=== PATIENT | female | born 1960 | race Caucasian/White ===

== ENCOUNTER 2016-03-14 21:52 | Emergency (ER) | payer OTHER ==
--- NOTE | 2016-03-14 22:03 | ED SYNCOPE COMPLAINT ---
History of Present Illness General Chief Complaint: Syncope and Near-Syncope Stated Complaint: PT HAD A SYNCOPE Source: patient Exam Limitations: no limitations Vital Signs & Intake/Output Vital Signs & Intake/Output Vital Signs Date Time Temp Pulse Resp B/P Pulse O2 O2 Flow FiO2 Ox Delivery Rate 03/14 2253 72 152/76 100 Room Air 03/14 2215 98.0 64 16 136/62 100 Room Air Triage Nurses Notes Reviewed? yes Timing: single episode today Precipitating Factors: lightheadedness Loss of Consciousness: no loss of consciousness HPI: 55-year-old female had a near syncopal episode while she was here in the emergency room with her daughter who was getting an abscess drainage. Patient has a history of feeling lightheaded and woozy when she sees blood. Patient was in the room during the procedure and started to feel lightheaded dizzy and nauseous. Patient never lost consciousness completely. Patient became diaphoretic and felt like she was going to pass out. No chest pain. No shortness of breath. No heart palpitations. Denies any other associated symptoms. (FAY STAPLES) Past History Travel History Traveled to [place] past 21 day No Medical History Any Pertinent Medical History? none Surgical History Surgical History: non-contributory Family History Hx Contributory? No (FAY STAPLES) Review of Systems Review of Systems Constitutional: Reports: see HPI. EENTM: Reports: no symptoms. Respiratory: Reports: no symptoms. Cardiovascular: Reports: no symptoms. GI: Reports: no symptoms. Genitourinary: Reports: no symptoms. Musculoskeletal: Reports: no symptoms. Skin: Reports: no symptoms. Neurological/Psychological: Reports: no symptoms. All Other Systems: Reviewed and Negative (FAY STAPLES) Physical Exam Physical Exam General Appearance: well developed/nourished, no apparent distress, alert Head: atraumatic, normal appearance Eyes: Bilateral: normal appearance, PERRL, EOMI. Ears, Nose, Throat: normal pharynx, normal ENT inspection Neck: normal inspection, supple, full range of motion Respiratory: normal breath sounds, no respiratory distress Cardiovascular: regular rate/rhythm Back: normal inspection, normal range of motion Extremities: normal inspection Psychiatric: awake, alert, oriented x 3 Cranial Nerves: normal hearing, normal speech, PERRL Coordination/Gait: normal finger to nose Motor/Sensory: no motor/sensory deficits Skin: intact, diaphoresis Core Measures ACS in differential dx? No CVA/TIA Diagnosis: No Severe Sepsis Present: No Septic Shock Present: No (FAY STAPLES) Progress Differential Diagnosis: AMI, aortic dissection, aortic valve, drug induced syncope, hyperventilation, orthostatic syncope, other valvular disease, pacemaker malfunction, pericardial tamponade, pulmonary embolus, seizure, sick sinus syndrome, subarachnoid hem., TIA/CVA, vasodepressor syncope, ventricular tach/fib Plan of Care: Orders Procedure Date/time Status EKG 03/14 2201 Active Initial ED EKG: normal intervals, normal p-waves, normal QRS complex, normal sinus rhythm, rate (64), nonspecific ST T wave chg Comments: 03/14/2016 10:36:02 PM Patient clinically looks well. Nontoxic-appearing. In no apparent distress. Resting comfortably in room. Patient's symptoms have resolved at this point. Patient had a vasovagal episode. EKG within normal limits. I do not feel blood work or further workup is necessary at this time. She was recommended to follow -up with her primary care doctor for reevaluation on Thursday. Return if any other concerns. (FAY STAPLES) Departure Departure Disposition: HOME OR SELF CARE Condition: Stable Clinical Impression Primary Impression: Vasovagal near syncope Additional Instructions: Follow-up with your primary care doctor. Return if any concerns worsening symptoms. Please go over all results of today's visit with your primary care doctor. Contact your primary care doctor to let them know you were here in the emergency room. There may be nonspecific findings which may not be related to your visit today here in the emergency room but may require further evaluation and chronic monitoring by your primary care doctor. If you had a laceration today the chance of foreign body always remains. You should follow-up with your primary care doctor for recheck in 3-5 days for a wound check. If you had an x-ray done there is a chance that a fracture could have been missed on initial read and you should follow-up with your primary care doctor for repeat x-rays if symptoms persist. If your blood pressure was elevated here in the emergency room please have rechecked by her primary care doctor within the next 48 hours by your primary care doctor. If you were prescribed a narcotic here in the emergency room or any type of controlled substances you're not allowed to drive while taking this medication or operate any type of heavy machinery. Narcotics can make you feel lightheaded dizziness nausea and can cause constipation. You may need to pick up man a stool softener. Thank you for choosing [facility] emergency room. Please return to the emergency room immediately if you have any other concerns worsening of symptoms. Departure Forms: Customer Survey General Discharge Information (FAY STAPLES) PA/SHELL MOLD BONDER Co-Sign Statement Statement: ED Attending supervision documentation- [] I saw and evaluated the patient. I have also reviewed all the pertinent lab results and diagnostic results. I agree with the findings and the plan of care as documented in the PA's/SHELL MOLD BONDER's documentation. [x] I have reviewed the ED Record and agree with the PA's/SHELL MOLD BONDER's documentation. [] Additions or exceptions (if any) to the PAs/SHELL MOLD BONDER's note and plan are summarized below: [] (IGOR FUNEZ,KASHIF Rodríguez)
[2016-03-14 22:53] VITALS: BP 152/76
== END 2016-03-14 22:53 ==
LOC: ERH 21:52
DX: R55 Syncope and collapse (principal)
CPT/HCPCS: 93005; 93010